=== PATIENT | female | born 1930 | race Caucasian/White ===

== ENCOUNTER 2020-01-10 18:32 | Inpatient (IN) | payer MEDICAID, MEDICARE ==
[~2020-01-10] VITALS: Ht 170.2 cm; Wt 75.8 kg
[2020-01-10] MEDS ORDERED: SODIUM CHLORIDE 0.9% 1,000ML IVBOLUS ONE (19:00)
--- NOTE | 2020-01-10 19:06 | NUR ---
BIB EMS FROM [place] FOR SEIZURE, HX OF SEIZURES COMPLIANT WITH MEDS. INITIALLY FEVER, ALTERED, TACHY HR. GIVEN 2G ROCEPHIN, VANCO, ACYCLOVIR, TYLENOL, VERSED. UPON ARRIVAL PT A&OX3, FOLLOWING COMMANDS. CONNECTED TO ALL MONITORING, TACHY, SLIGHT FEVER. IV IN PLACE, FLUIDS STARTED, LABS DRAWN. AWAITING RESULTS AND ADMIT ORDERS. CALL LIGHT WIIN REACH
--- NOTE | 2020-01-10 20:12 | NUR ---
REPORT GIVEN TO [place] WATKINS
[2020-01-10 20:41] LABS: HCT (SEDRATE) 40.4 % (34.6-47.8)
[2020-01-10 20:52] LABS: C-REACTIVE PROTEIN, QUANT 0.54 mg/dL (0.02-0.49)
[2020-01-10 20:55] LABS: CREATINE KINASE, TOTAL 90 U/L (26-192); TROPONIN I 0.023 ng/mL (0.000-0.045)
[2020-01-10] MEDS ORDERED: ONDANSETRON 2MG/ML, 2ML IVPush PRN (21:00)
[2020-01-10] MEDS ORDERED: RIVAROXABAN 20 MG TABLET PO SCH (21:00)
--- NOTE | 2020-01-10 21:32 | NUR ---
GAVE REPORT TO ARGELIA WATKINS
--- NOTE | 2020-01-10 21:33 | NUR ---
HOSPITALIST TURNED O2 OFF TO ASSESS PT'S O2 SATS. ON RA PT 85%. PLACED PT BACK ON 2LNC
[2020-01-10 22:22] LABS: MICROSCOPIC AUTO
--- NOTE | 2020-01-10 22:32 | NUR ---
PT COOPERATED AND PERFORMED BREATHLIZER. PT BLEW 0.03. MD INFORMED.
--- NOTE | 2020-01-10 22:43 | NUR ---
TP RN: Per Dr Case, pt was covid swabbed at sending facility and will not be reswabbed here.
--- NOTE | 2020-01-10 22:58 | NUR ---
THIS DRUM ATTENDANT WAS IN PATIENT'S ROOM TO HELP SIGN PATIENT CONCENT FORM.
[2020-01-11 01:05] VITALS: BP 127/79
[2020-01-11] MEDS ORDERED: CHOL10003 PO (02:06)
[2020-01-11] MEDS ORDERED: CALC500T29 PO (02:06)
[2020-01-11] MEDS ORDERED: RIVAROXABAN 20 MG TABLET PO ONE (02:40)
[2020-01-11] MEDS: PHENYTOIN 100 MG CAPSULE PO SCH ×4 (02:52→21:31)
[2020-01-11] MEDS: METOPROLOL SUCCINATE 50 MG TAB.ER.24H PO SCH (05:31)
[2020-01-11 08:22] VITALS: BP 125/74
[2020-01-11 08:58] LABS: BASOPHILS # (AUTO) 0.05 x10^3/uL (0-0.1); BASOPHILS % (AUTO) 1 % (0-1); EOSINOPHILS # (AUTO) 0.17 x10^3/uL (0-0.4); EOSINOPHILS % (AUTO) 2 % (1-7); LYMPHOCYTES # (AUTO) 1.18 x10^3/uL (1-3.4); LYMPHOCYTES % (AUTO) 14 % (22-44); MD NO; MEAN CORPUSCULAR HEMOGLOBIN 32.9 pg (27.0-34.8); MEAN CORPUSCULAR HGB CONC 33.5 g/dL (32.4-35.8); MEAN CORPUSCULAR VOLUME 98.2 fL (80-100); MEAN PLATELET VOLUME 7.5 fL (7.4-10.4); MONOCYTES # (AUTO) 1.07 x10^3/uL (0.2-0.8); MONOCYTES % (AUTO) 13 % (2-9); NEUTROPHILS # (AUTO) 5.73 x10^3/uL (1.8-6.8); NEUTROPHILS % (AUTO) 70 % (42-75); PLATELET COUNT 165 x10^3/uL (130-400); RED BLOOD COUNT 4.27 x10^6/uL (3.82-5.3); RED CELL DISTRIBUTION WIDTH 13.2 % (9.6-15.2)
[2020-01-11] MEDS ORDERED: SPIRONOLACTONE 25 MG TABLET PO SCH (09:00)
[2020-01-11] MEDS ORDERED: FUROSEMIDE 40 MG TABLET PO SCH (09:00)
[2020-01-11] MEDS ORDERED: DIGOXIN 0.125 MG TABLET PO SCH (09:00)
[2020-01-11 09:07] LABS: ALBUMIN 3.1 g/dL (3.4-5.0); ANION GAP 5 mmol/L (5-15); CALCIUM 8.9 mg/dL (8.5-10.1); CHLORIDE 110 mmol/L (98-107)
[2020-01-11 09:12] LABS: BILIRUBIN, DIRECT 0.2 mg/dL (0.1-0.2); BILIRUBIN,INDIRECT 0.3 mg/dL (0.0-2.0); BILIRUBIN,TOTAL 0.5 mg/dL (0.2-1.0); TOTAL PROTEIN 6.6 g/dL (6.4-8.2)
[2020-01-11 09:18] LABS: CREATININE 0.83 mg/dL (0.55-1.02)
[2020-01-11 10:01] LABS: HCT (SEDRATE) 41.9 % (34.6-47.8)
[2020-01-11] MEDS: NITROGLYCERIN 0.4 MG BOTTLE (25 TABS) SL PRN (12:26)
[2020-01-11 13:15] LABS: TROPONIN I < 0.015 ng/mL (0.000-0.045)
[2020-01-11 15:23] VITALS: BP 119/75
[2020-01-11] MEDS ORDERED: GADOTERATE 7.5 MMOL/15 ML SYR ONE (16:18)
[2020-01-11] MEDS: RIVAROXABAN 15 MG TABLET PO SCH (16:57)
[2020-01-11 18:46] VITALS: BP 106/62
[2020-01-11 19:00] LABS: TROPONIN I < 0.015 ng/mL (0.000-0.045)
[2020-01-12] VITALS (8 sets, daily range): BP systolic 101–125; BP diastolic 56–76
[2020-01-12] MEDS: METOPROLOL SUCCINATE 50 MG TAB.ER.24H PO SCH (06:00)
[2020-01-12 06:38] LABS: ANION GAP 6 mmol/L (5-15); CALCIUM 8.7 mg/dL (8.5-10.1); CHLORIDE 108 mmol/L (98-107); CREATININE 1.02 mg/dL (0.55-1.02)
[2020-01-12] MEDS: DIGOXIN 0.125 MG TABLET PO SCH (09:17)
[2020-01-12] MEDS: PHENYTOIN 100 MG CAPSULE PO SCH ×3 (09:18→21:48)
[2020-01-12] MEDS: RIVAROXABAN 15 MG TABLET PO SCH (16:56)
[2020-01-12] MEDS: NITROGLYCERIN 0.4 MG BOTTLE (25 TABS) SL PRN (23:50)
[2020-01-12] MEDS: ACETAMINOPHEN 325 MG TABLET PO PRN (23:54)
[2020-01-13 00:25] VITALS: BP 115/74
[2020-01-13] MEDS ORDERED: morphine SULFATE 10 MG/ML, 1ML IVPush ONE (00:30)
[2020-01-13 05:52] VITALS: BP 106/59
[2020-01-13] MEDS: METOPROLOL SUCCINATE 50 MG TAB.ER.24H PO SCH (05:53)
[2020-01-13 08:19] VITALS: BP 93/52
[2020-01-13] MEDS: PHENYTOIN 100 MG CAPSULE PO SCH ×3 (08:37→21:11)
[2020-01-13] MEDS: DIGOXIN 0.125 MG TABLET PO SCH (08:37)
[2020-01-13 12:20] VITALS: BP 107/60
[2020-01-13] MEDS: ACETAMINOPHEN 325 MG TABLET PO PRN (15:09)
[2020-01-13] MEDS: RIVAROXABAN 15 MG TABLET PO SCH (16:21)
[2020-01-13 19:39] VITALS: BP 117/73
[2020-01-14 01:18] VITALS: BP 102/67
[2020-01-14 05:09] LABS: ANION GAP 5 mmol/L (5-15); CALCIUM 8.4 mg/dL (8.5-10.1); CHLORIDE 110 mmol/L (98-107)
[2020-01-14 05:12] LABS: CREATININE 0.77 mg/dL (0.55-1.02)
[2020-01-14] MEDS: METOPROLOL SUCCINATE 50 MG TAB.ER.24H PO SCH (05:47)
[2020-01-14 07:35] VITALS: BP 98/64
[2020-01-14] MEDS: PHENYTOIN 100 MG CAPSULE PO SCH ×3 (08:17→20:16)
[2020-01-14] MEDS: DIGOXIN 0.125 MG TABLET PO SCH (08:18)
[2020-01-14] MEDS: ACETAMINOPHEN 325 MG TABLET PO PRN (10:33)
[2020-01-14 12:57] VITALS: BP 93/60
[2020-01-14] MEDS: RIVAROXABAN 15 MG TABLET PO SCH (16:31)
[2020-01-14 20:22] VITALS: BP 108/74
[2020-01-15 00:40] VITALS: BP 116/74
[2020-01-15] MEDS: ACETAMINOPHEN 325 MG TABLET PO PRN (04:12)
[2020-01-15] MEDS: METOPROLOL SUCCINATE 50 MG TAB.ER.24H PO SCH (06:00)
[2020-01-15 06:03] VITALS: BP 97/61
[2020-01-15] MEDS: DIGOXIN 0.125 MG TABLET PO SCH (09:17)
[2020-01-15] MEDS: PHENYTOIN 100 MG CAPSULE PO SCH ×3 (09:17→20:16)
[2020-01-15 13:50] VITALS: BP 85/51
[2020-01-15] MEDS: RIVAROXABAN 15 MG TABLET PO SCH (17:18)
[2020-01-15 19:01] VITALS: BP 113/73
[2020-01-16] MEDS: ACETAMINOPHEN 325 MG TABLET PO PRN (01:57)
[2020-01-16 02:03] VITALS: BP 103/63
[2020-01-16] MEDS: METOPROLOL SUCCINATE 50 MG TAB.ER.24H PO SCH (05:33)
[2020-01-16 06:56] VITALS: BP 95/60
[2020-01-16] MEDS: DIGOXIN 0.125 MG TABLET PO SCH (08:35)
[2020-01-16] MEDS: PHENYTOIN 100 MG CAPSULE PO SCH ×3 (08:35→20:17)
[2020-01-16 12:55] VITALS: BP 101/66
[2020-01-16] MEDS: RIVAROXABAN 15 MG TABLET PO SCH (17:07)
[2020-01-16 19:18] VITALS: BP 95/55
[2020-01-17 00:01] VITALS: BP 100/63
[2020-01-17] MEDS: METOPROLOL SUCCINATE 50 MG TAB.ER.24H PO SCH (05:52)
[2020-01-17 06:29] VITALS: BP 102/67
[2020-01-17] MEDS: PHENYTOIN 100 MG CAPSULE PO SCH ×3 (08:18→20:11)
[2020-01-17] MEDS: DIGOXIN 0.125 MG TABLET PO SCH (08:18)
[2020-01-17 14:00] VITALS: BP 98/67
[2020-01-17] MEDS: RIVAROXABAN 15 MG TABLET PO SCH (17:05)
[2020-01-17 18:15] VITALS: BP 96/57
[2020-01-18 00:19] VITALS: BP 94/57
[2020-01-18] MEDS: METOPROLOL SUCCINATE 50 MG TAB.ER.24H PO SCH (05:16)
[2020-01-18 07:20] VITALS: BP 92/50
[2020-01-18] MEDS: PHENYTOIN 100 MG CAPSULE PO SCH (10:58)
[2020-01-18] MEDS: DIGOXIN 0.125 MG TABLET PO SCH (11:00)
[2020-01-18 12:09] VITALS: BP 93/57
[2020-01-18] MEDS ORDERED: PHEN100C PO (12:31)
[2020-01-18] MEDS ORDERED: DIGO125T85 PO (12:31)
[2020-01-18] MEDS ORDERED: RIVA15TA PO (12:31)
[2020-01-18] MEDS ORDERED: METO-93 PO (12:31)
== END 2020-01-18 15:45 | disposition home or self-care (01) | DRG 100 ==
LOC: ED 19:35 → EDIP 19:42 → ED 19:45 → 4NE 01-11 00:54 → 4EST 01-13 17:39 → 3N 01-14 16:40
PROVIDERS: ADMIT Internal Medicine; ATTEND Hospitalist
PROC: 4A10X4Z Monitoring of Central Nervous Electrical Activity, External Approach (ICD-10-PCS; principal; 2020-01-11)
DX: G40.909 Epilepsy, unspecified, not intractable, without status epilepticus (principal); J96.91 Respiratory failure, unspecified with hypoxia; D68.69 Other thrombophilia; N17.9 Acute kidney failure, unspecified; F03.90 Unspecified dementia, unspecified severity, without behavioral disturbance, psychotic disturbance, mood disturbance, and anxiety; I48.91 Unspecified atrial fibrillation; I07.1 Rheumatic tricuspid insufficiency; I27.20 Pulmonary hypertension, unspecified; J44.9 Chronic obstructive pulmonary disease, unspecified; I11.0 Hypertensive heart disease with heart failure; I50.9 Heart failure, unspecified; D64.9 Anemia, unspecified; Z88.0 Allergy status to penicillin; Z90.10 Acquired absence of unspecified breast and nipple; Z86.73 Personal history of transient ischemic attack (TIA), and cerebral infarction without residual deficits; Z86.718 Personal history of other venous thrombosis and embolism; Z88.6 Allergy status to analgesic agent; Z03.818 Encounter for observation for suspected exposure to other biological agents ruled out
CPT/HCPCS: 36415; 70553; 71045; 80048; 80076; 81001; 82550; 83605; 83735; 84145; 84443; 84484; 85025; 85651; 86140; 87040; 93005; 93308; 93321; 93325; 95819; 99285; G0378; A9575; J2270; J7030; U0001-CS